=== PATIENT | male | born 1985 | race Caucasian/White ===

== ENCOUNTER 2021-08-11 15:38 | Emergency (ER) | payer SELFPAY ==
[2021-08-11 15:46] VITALS: BP 134/75; PULSE 102; RESP 18; TEMP 36.4; O2SAT 100
--- NOTE | 2021-08-11 16:49 | ED.GENADULT ---
HPI - General Adult General Chief complaint: Upper Respiratory Infection Stated complaint: sore throat, n/v/d, cough, fever Time Seen by Provider: 08/11/21 16:25 Source: patient and family Mode of arrival: ambulatory Limitations: no limitations History of Present Illness [facility] narrative: Patient is here for worsening sore throat causing him to be short of breath. He was seen at another facility yesterday told that he had flu and bronchitis . States that he was not tested for flu only for Covid and strep throat. He has had subjective fever at home for several days. He does have a history of strep. He states today at work he became very short of breath and he has been nauseous. Overall has body aches. He has been eating and drinking as usual. Onset (ago): day(s) Severity: severe Relieving factors: none Associated symptoms: denies other symptoms Related Data Home Medications Medication Instructions Recorded Confirmed No Home Medications 08/11/21 08/11/21 Allergies Allergy/AdvReac Type Severity Reaction Status Date / Time No Known Allergies Allergy Verified 08/11/21 16:04 Review of Systems Review of Systems: All systems reviewed & are unremarkable except as noted in HPI and below [facility] Social History Social History (Updated 08/11/21 @ 17:28 by Tamia Murillo PA-C) Smoking status: Current every day smoker Tobacco type: e-cigarettes/vaping Alcohol intake: never Substance use: never Living arrangements: with family Occupation/Education: occupation Additional occupation/education comments: retail Exam Const: General: no acute distress and alert Orientation/consciousness: patient oriented x3 HENMT: Ears: TM's normal bilaterally Mouth: Yes other (raspy voice) Teeth and gingiva: dentition normal Throat: uvula midline and abnormal tonsil (very swollen) bilateral Eyes: Conjunctivae: conjunctivae normal Pupils: Equal, round and reactive pupils present Neck: Neck: no lymphadenopathy Resp: Effort & Inspection: normal respiratory effort Auscultation: diminished lung sounds bilateral in the lower lung staley Cardio: Rate: tachycardic Rhythm: regular rhythm Course Course Emergency Course: Both flu and strep swabs here were negative but given patient's physical exam will treat with IM Dex and penicillin. Patient does not have insurance at this time they were unable to get their prescriptions filled from the other hospital. Vital Signs Vital signs: Vital Signs Temperature 36.4 C L 08/11/21 15:46 Pulse Rate 102 H 08/11/21 15:46 Respiratory Rate 18 08/11/21 15:46 Blood Pressure 134/75 08/11/21 15:46 Pulse Oximetry 100 08/11/21 15:46 Temperature 36.4 C L 08/11/21 15:46 Pulse Rate 102 H 08/11/21 15:46 Respiratory Rate 18 08/11/21 15:46 Blood Pressure 134/75 08/11/21 15:46 Pulse Oximetry 100 08/11/21 15:46 Medical Decision Making Vital Signs Vital Signs: Vital Signs Temperature 36.4 C L 08/11/21 15:46 Pulse Rate 102 H 08/11/21 15:46 Respiratory Rate 18 08/11/21 15:46 Blood Pressure 134/75 08/11/21 15:46 Pulse Oximetry 100 08/11/21 15:46 Temperature 36.4 C L 08/11/21 15:46 Pulse Rate 102 H 08/11/21 15:46 Respiratory Rate 18 08/11/21 15:46 Blood Pressure 134/75 08/11/21 15:46 Pulse Oximetry 100 08/11/21 15:46 Discharge Plan Discharge Clinical Impression: Acute bacterial tonsillitis Patient Disposition: Home, Self-Care Condition: Stable Instructions: Antibiotic Form, Tonsillitis (ED) Additional Instructions: He received both antibiotic and steroid in the emergency room. You do not need to fill the other prescriptions. Please purchase a thermometer, fever is greater than 100.4. You may also use [id number] Cepastat lozenges for numbing, please gargle with warm salt water 3-4 times a day. Follow-up with your primary care physician as needed. Return to the emergency room should you have worsening sh
[2021-08-11] MEDS: PENICILLIN G BENZATHINE 1,200,000 UNITS/2 ML SYRINGE 1200000 UNITS IM (18:05)
[2021-08-11 18:20] VITALS: BP 130/80; PULSE 105; RESP 20; O2SAT 99
== END 2021-08-11 18:25 | disposition home or self-care (01) ==
PROVIDERS: Emergency Provider Emergency Medicine
DX: J03.80 Acute tonsillitis due to other specified organisms (principal); B96.89 Other specified bacterial agents as the cause of diseases classified elsewhere; F17.290 Nicotine dependence, other tobacco product, uncomplicated
CPT/HCPCS: 87081; 87804; 87880; 96372; 99284; J0561; J1100

== ENCOUNTER 2021-09-01 14:59 | Emergency (ER) | payer MEDICAID, SELFPAY ==
--- NOTE | ~2021-09-01 | CT_ITS ---
EXAMINATION: CT abdomen pelvis wo con DATE: 09/01/2021 18:29 INDICATION: Right flank pain. Hematochezia. TECHNIQUE: Computed tomography (CT) of the abdomen and pelvis was performed without intravenous contr ast. The dose-length product was 1393.75 mGy-cm. Automated exposure control and iterative reconstruct ion technique were employed. COMPARISON: None. FINDINGS: Lung bases are unremarkable. No significant pleural or pericardial effusion. Heart size is normal. There is acute diverticulitis of the colon at the hepatic flexure. Nonobstructive bowel gas p attern. No evidence for perforation or abscess. Normal appendix. There are punctate nonobstructing bi lateral renal stones. No ureteral stones or hydronephrosis. Bladder is decompressed. No abnormal pelv ic masses or fluid collections. No lymphadenopathy. No significant vascular abnormality. No free air or free fluid. IMPRESSION: 1. Acute right-sided uncomplicated diverticulitis at the hepatic flexure. 2: Nonobstructing bilateral nephrolithiasis. Reviewed, dictated and finalized at location A.
[2021-09-01 17:02] VITALS: BP 130/75; PULSE 96; RESP 18; TEMP 37.1; O2SAT 100
[2021-09-01 17:34] LABS: Basophils Absolute Auto 0.1 K/mm3 (0.0-0.1); Basophils Percent Auto 0.5 % (0.2-1.2); Eosinophils Absolute Auto 0.2 K/mm3 (0-0.3); Eosinophils Percent Auto 1.9 % (0-4.4); Hematocrit 42.8 % (42.0-52.0); Hemoglobin 14.4 g/dL (14.0-18.0); Immature Granulocyte Absolute 0.04 K/mm3 (0.00-0.031); Immature Granulocyte Percent A 0.4 % (0-0.5); Lymphocytes Absolute Auto 2.46 K/mm3 (0.9-3.2); Lymphocytes Percent Auto 25.5 % (18.3-44.2); Mean Corpuscular HGB Conc 33.6 g/dl (32-36); Mean Corpuscular Hemoglobin 30.3 pg (26-34); Mean Corpuscular Volume 90.1 fl (80-100); Monocytes Absolute Auto 0.9 K/mm3 (0.1-0.6); Monocytes Percent Auto 9.8 % (2.6-8.5); Neutrophils Percent Auto 61.9 % (45.5-73.1); Platelet Count Result 309 k/mm3 (150-375); Red Blood Count 4.75 M/mm3 (4.6-6.20); White Blood Count 9.6 K/mm3 (4.5-10.0)
[2021-09-01 17:43] LABS: Anion Gap 10 mmol/L (8-16); Blood Urea Nitrogen 10 mg/dL (9-20); Calcium 9.4 mg/dL (8.4-10.2); Carbon Dioxide 24 mmol/L (22-30); Chloride 105 mmol/L (98-107); Estimated CRCL calculation 156 ml/min; Estimated Glomerular Filt Rate > 60; Glucose 112 mg/dL (65-110); Potassium 4.1 mmol/L (3.4-5.0); Sodium 139 mmol/L (137-145)
--- NOTE | 2021-09-01 17:54 | PC.NURSE ---
Pt walked outside
[2021-09-01 18:08] LABS: Add Urine Microscopic? YES; Appearance Urine Cloudy (Clear); Bilirubin Urine Negative (Negative); Blood Urine 1+ (Negative); Color Urine Yellow (Yellow); Glucose Urine UA Negative (Negative); Ketones Urine Negative (Negative); Leukocyte Esterase Ur Negative LEU/UL (Negative); Mucus Urine Rare /lpf; Nitrate Urine Negative (Negative); Protein Urine Negative (Negative); Specific Grav Ur 1.017 (1.001-1.035); Urobilinogen Urine Negative mg/dL (<2.0); WBC Urine 0-3 /hpf
[2021-09-01 18:54] VITALS: PULSE 88; RESP 21; O2SAT 100
[2021-09-01 19:33] VITALS: PULSE 92; RESP 24; O2SAT 100
[2021-09-01 19:52] VITALS: PULSE 91; RESP 23; O2SAT 100
[2021-09-01 20:00] VITALS: PULSE 91; RESP 20; O2SAT 100
--- NOTE | 2021-09-01 21:21 | ED.BACK ---
HPI - Back Pain/Injury General Chief Complaint: Back Pain/Injury Stated Complaint: right side pain Time Seen by Provider: 09/01/21 18:19 Source: patient Mode of arrival: ambulatory Limitations: no limitations History of Present Illness HPI Narrative: 36-year-old male Here for right sided back pain that started yesterday when he woke up Pain initially improved somewhat and he was able to go to work today but after helping somebody lift up a sofa it got much worse, and he vomited 1 time He also reported that he had a loose stool that he thought was bloody, although that was more from its odor than from its visual appearance because he did not actually look at He has not had any urinary symptoms or any fever No prior episodes, no prior abdominal operations Related Data Allergies Allergy/AdvReac Type Severity Reaction Status Date / Time No Known Allergies Allergy Verified 09/01/21 18:59 Review of Systems Review of Systems: All systems reviewed & are unremarkable except as noted in HPI and below Constitutional: Constitutional: Reports no additional constitutional complaints, Denies chills, Denies fever(s) and Denies headache(s) Eyes: Eyes: Reports no additional eye complaints and Denies change in vision ENT: Denies headache(s) and Denies sore throat Cardiovascular: Cardiovascular: Denies chest pain and Denies dyspnea Respiratory: Respiratory: Denies cough and Denies dyspnea Gastrointestinal: Gastrointestinal: Reports abdominal pain, Reports diarrhea, Reports nausea and Reports vomiting Genitourinary: Genitourinary: Denies dysuria and Denies urinary frequency Musculoskeletal: Musculoskeletal: Reports back pain, Denies deformity, Denies arthralgias, Denies joint swelling and Denies numbness Integumentary/Breasts: Skin/Breast: Denies rash and Denies wounds Neurologic: Denies headache(s), Denies focal weakness and Denies numbness Psychiatric: Psychiatric: Reports no additional psychiatric complaints Endocrine: Endocrine: Reports no additional endocrine complaints Hematologic/Lymphatic: Hematologic/Lymphatic: Reports no additional hematologic/lymphatic complaints Allergic/Immunologic: Allergic/Immunologic: Reports no additional allergic/immunologic complaints [facility] Social History Social History (Updated 08/11/21 @ 17:28 by Tamia Murillo PA-C) Smoking status: Current every day smoker Tobacco type: e-cigarettes/vaping Alcohol intake: never Substance use: never Additional occupation/education comments: retail Exam Const: General: cooperative, no acute distress and alert Nutritional Appearance: obese Orientation/consciousness: patient oriented x3 (alert) HENMT: Head: normal to inspection, normocephalic and atraumatic Ears: external ears normal General nose exam: no epistaxis Eyes: Conjunctivae: conjunctivae normal EOM: EOMs intact bilaterally Neck: Neck: normal visual inspection, supple and no JVD Resp: Effort & Inspection: normal respiratory effort and not labored Auscultation: clear to auscultation bilaterally, no rales, no rhonchi, no wheezes and other (BS =) Cardio: Rate: regular rate Rhythm: regular rhythm Heart sounds: no murmurs GI: Inspection: non-distended GI Palp: Yes Soft to palpation and No Tenderness to palpation present (GI) Other: Lateral right upper quadrant tenderness without rebound or guarding : General: Yes CVA tenderness on the right Skin: General skin exam: normal color and no rashes or lesions noted Neuro: General: patient oriented x3 (alert) and moves all extremities Speech: normal speech Extrem: General: normal to inspection and no pedal edema Psych: Affect: normal affect Course Course Emergency Course: Reviewed all the results with patient Vital Signs Vital signs: Vital Signs Temperature 37.1 C 09/01/21 17:02 Pulse Rate 96 09/01/21 17:02 Respiratory Rate 18 09/01/21 17:02 Blood Pressure 130/75 09/01/21 17:02 Pulse Oximet
== END 2021-09-01 20:33 | disposition home or self-care (01) ==
PROVIDERS: Emergency Provider Emergency Medicine
DX: K57.32 Diverticulitis of large intestine without perforation or abscess without bleeding (principal); F17.290 Nicotine dependence, other tobacco product, uncomplicated; N20.0 Calculus of kidney
CPT/HCPCS: 36415; 74176; 80048; 81001; 85025; 99284

== ENCOUNTER 2022-01-07 12:00 | Emergency (ER) | payer OTHER, BC, SELFPAY ==
[2022-01-07] VITALS (22 sets, daily range): BP systolic 99–139; BP diastolic 48–97; PULSE 79–96; RESP 9–21; TEMP 36.8; O2SAT 98–100
--- NOTE | ~2022-01-07 | CT_ITS ---
EXAMINATION: CT abdomen pelvis w con DATE: 01/07/2022 14:24 INDICATION: Epigastric pain. Hematemesis TECHNIQUE: Computed tomography (CT) of the abdomen and pelvis was performed with 100 cc Omnipaque 350 intravenous contrast. The dose-length product was 1681.97 mGy-cm. Automated exposure control and ite rative reconstruction technique were employed. COMPARISON: CT dated 09/01/2021. FINDINGS: Lung bases are unremarkable. No significant pleural or pericardial effusion. Heart size nor mal. The liver, spleen, pancreas, adrenal glands are unremarkable. There are punctate nonobstructing bilateral renal stones. No ureteral stones or hydronephrosis. Gallbladder is present. Nonobstructive bowel gas pattern. Normal appendix. No free air or free fluid. No significant vascular abnormality. N o acute osseous abnormality. IMPRESSION: 1. Nonobstructing bilateral nephrolithiasis. Reviewed, dictated and finalized at location A. TAL ACCOUNT DIRECTOR
--- NOTE | 2022-01-07 12:23 | ECG_ITS ---
Measurements Intervals [place] Rate: 87 P: 28 AK: 177 QRS: 35 QRSD: 101 T: 25 QT: 329 QTc: 398 Interpretive Statements SINUS RHYTHM NORMAL ECG NO PREVIOUS ECG AVAILABLE FOR COMPARISON Electronically Signed On 01-08-2022 13:52:00 PATIENT ACCOUNT SPECIALIST by Isaías Tobin M.D.
--- NOTE | 2022-01-07 12:42 | ED.ABDPAIN ---
HPI - Abdominal Pain General Chief Complaint: Abdominal Pain Stated Complaint: cold symptoms, coughing up blood x 2 days Time Seen by Provider: 01/07/22 12:17 Source: patient History of Present Illness HPI narrative: Patient presents with multiple complaints. Reports he woke up Saturday just feeling unwell monitor his symptoms and symptoms persisted and he developed abdominal pain on Saturday. Saturday evening he had one episode of emesis. This morning he had 2 episodes of emesis with blood present he was concerned so he came to the ER for evaluation. Patient also reports cough and shortness of breath does report he is a prior smoker and he has a chronic cough and shortness of breath that does not not appear to have any significant changes from his baseline. Ports abdominal pain in the epigastric/upper quadrant area. Pain is achy, constant, no radiation, no clear aggravating or alleviating factors Related Data Allergies Allergy/AdvReac Type Severity Reaction Status Date / Time No Known Allergies Allergy Verified 01/07/22 12:17 Review of Systems Review of Systems: CONSTITUTIONAL: Denies fever, chills, or sweats. EYES: Denies visual changes, redness, or discharge. ENT: Denies rhinorrhea, congestion, sore throat, or otalgia. CARDIOVASCULAR: Denies chest pain, palpitations, or edema. RESPIRATORY: Reports cough and shortness of breath GASTROINTESTINAL: Abdominal pain with nausea and vomiting GENITOURINARY: Denies dysuria or hematuria. SKIN: Denies rash or itching. MUSCULOSKELETAL: Denies back pain, joint pain, or myalgia. NEUROLOGIC: Denies headache, numbness, dizziness, or weakness. PSYCHIATRIC: Denies anxiety or depression. All systems reviewed & are unremarkable except as noted in HPI and below PMFSH Past Medical History Medical History (Updated 01/07/22 @ 14:58 by Suman Robins MD) Patient denies significant medical history Social History Social History Smoking status: Current every day smoker Tobacco type: e-cigarettes/vaping Alcohol intake: never Substance use: never Additional occupation/education comments: retail Exam Narrative: GENERAL: Well-appearing, well-nourished, and in no acute distress. HEAD: Normocephalic, atraumatic. EYES: PERRLA and EOMI. ENT: Nares clear, no rhinorrhea or epistaxis. Mucous membranes moist. NECK: Supple. No masses. No JVD CHEST: Clear to auscultation. No respiratory distress. No wheezes rales or rhonchi HEART: Regular rate and rhythm. No murmur heard. Normal peripheral pulses. ABDOMEN: Mild pain with palpation in the epigastric area no rebound or guarding soft, nondistended, normal active bowel sounds. EXTREMITIES: Normal range of motion. No edema. SKIN: Warm, dry, no rash. NEURO: No focal deficits. Alert and oriented x3. PSYCH: Normal mood and affect. Course Reevaluation(s) Reevaluation #1: Results and plan reviewed with patient. Patient is comfortable outpatient plan. Date: 01/07/22 Time: 14:54 Vital Signs Vital signs: Vital Signs Temperature 36.8 C 01/07/22 12:10 Pulse Rate 96 01/07/22 12:10 Respiratory Rate 15 01/07/22 12:10 Blood Pressure 133/96 H 01/07/22 12:10 Pulse Oximetry 99 01/07/22 12:10 Temperature 36.8 C 01/07/22 12:10 Pulse Rate 85 01/07/22 15:00 Respiratory Rate 18 01/07/22 15:00 Blood Pressure 115/79 01/07/22 14:01 Pulse Oximetry 100 01/07/22 15:00 MDM - Abdominal Pain MDM Narrative Medical decision making narrative: H&P as above, vss, pt looks clinically well, exam with tenderness in epigastric area, labs reassuring, img without acute process, additional labs/img considered, symptomatic relief available as needed, on reevaluation pt continues to looks clinically well. Suspect viral process with Sola-Knapp, dns severe sepsis, severe dehydration, appendicitis, perforation, pancreatitis. plan to tx/monitor as op w/ pcm f/u findings/plan discussed wi
[2022-01-07] MEDS: MAG HYDROX/AL HYDROX/SIMETH 30 ML UDC PO (12:52)
[2022-01-07] MEDS: ONDANSETRON INJ 4 MG/2 ML VIAL IV PUSH (12:52)
[2022-01-07] MEDS: LIDOCAINE HCL 2% VISC SOLN 15 ML UDC 20 ML PO (12:52)
[2022-01-07] MEDS: SODIUM CHLORIDE 0.9% IV 1,000 ML 999 ML IV CONT (12:52)
[2022-01-07 13:04] LABS: Basophils Absolute Auto 0.1 K/mm3 (0.0-0.1); Basophils Percent Auto 0.8 % (0.2-1.2); Eosinophils Absolute Auto 0.3 K/mm3 (0-0.3); Eosinophils Percent Auto 3.3 % (0-4.4); Hematocrit 45.5 % (42.0-52.0); Hemoglobin 14.7 g/dL (14.0-18.0); Immature Granulocyte Absolute 0.04 K/mm3 (0.00-0.031); Immature Granulocyte Percent A 0.5 % (0-0.5); Lymphocytes Percent Auto 26.5 % (18.3-44.2); Mean Corpuscular HGB Conc 32.3 g/dl (32-36); Mean Corpuscular Hemoglobin 29.5 pg (26-34); Mean Corpuscular Volume 91.2 fl (80-100); Mean Platelet Volume 10.4 fl (7.4-10.4); Monocytes Absolute Auto 0.7 K/mm3 (0.1-0.6); Neutrophils Absolute Auto 4.5 K/mm3 (1.3-6.7); Neutrophils Percent Auto 59.9 % (45.5-73.1); Platelet Count Result 363 k/mm3 (150-375); Red Blood Count 4.99 M/mm3 (4.6-6.20); Red Cell Distribution Width 12.9 % (11.5-14.5); White Blood Count 7.6 K/mm3 (4.5-10.0)
[2022-01-07 13:28] LABS: Lactic Acid Reflex 1.3 mmol/L (0.7-2.1)
[2022-01-07 13:29] LABS: Alanine Aminotransferase 27 U/L (4-50); Albumin Level 4.1 g/dL (3.5-5.1); Alkaline Phosphatase 109 U/L (38-126); Anion Gap 7 mmol/L (8-16); Aspartate Amino Transferase 28 U/L (17-59); Bilirubin,Total 0.3 mg/dL (0.2-1.3); Blood Urea Nitrogen 12 mg/dL (9-20); Calcium 8.6 mg/dL (8.4-10.2); Carbon Dioxide 24 mmol/L (22-30); Chloride 107 mmol/L (98-107); Estimated CRCL calculation 183 ml/min; Estimated Glomerular Filt Rate > 60; Glucose 110 mg/dL (65-110); Lipase 63 U/L (23-300); Potassium 4.8 mmol/L (3.4-5.0); Sodium 138 mmol/L (137-145)
[2022-01-07 13:45] LABS: Add Urine Microscopic? NO; Appearance Urine Clear (Clear); Bilirubin Urine Negative (Negative); Blood Urine Negative (Negative); Color Urine Yellow (Yellow); Glucose Urine UA Negative (Negative); Ketones Urine Negative (Negative); Leukocyte Esterase Ur Negative LEU/UL (Negative); Nitrate Urine Negative (Negative); Protein Urine Negative (Negative); Specific Grav Ur 1.012 (1.001-1.035); Urobilinogen Urine Negative mg/dL (<2.0)
== END 2022-01-07 15:13 | disposition home or self-care (01) ==
PROVIDERS: Emergency Provider Emergency Medicine
DX: R10.13 Epigastric pain (principal); R11.2 Nausea with vomiting, unspecified; F17.290 Nicotine dependence, other tobacco product, uncomplicated; N20.0 Calculus of kidney
CPT/HCPCS: 36415; 74177; 80053; 81003; 83605; 83690; 85025; 93005; 96365; 96375; 99284; A9270; J0131; J2405; J7030; Q9967